=== PATIENT | female | born 1930 | race Caucasian/White ===

== ENCOUNTER → 2017-03-16 | Outpatient (CLI) | payer MEDICARE, BC ==
[~2017-03-16] MED LIST: DESYREL 50MG50 MG PO; NORCO 325 MG-51 TAB PO; PROLIA60 MG/ML SC
== END ==
LOC: MC.RAD 02-22 14:20
DX: Z12.31 Encounter for screening mammogram for malignant neoplasm of breast (principal)

== ENCOUNTER → 2018-07-14 | Outpatient (CLI) | payer MEDICARE, BC | LOC: MC.RAD 12:56 | DX: Z12.31 Encounter for screening mammogram for malignant neoplasm of breast (principal) | CPT/HCPCS: G0279 ==

== ENCOUNTER → 2019-10-09 | Outpatient (CLI) | payer MEDICARE, BC | LOC: MC.RAD 13:33 | DX: Z12.31 Encounter for screening mammogram for malignant neoplasm of breast (principal); D05.12 Intraductal carcinoma in situ of left breast; Z90.12 Acquired absence of left breast and nipple ==

== ENCOUNTER → 2020-10-16 | Outpatient (CLI) | payer MEDICARE, BC | LOC: MC.RAD 12:51 | DX: Z12.31 Encounter for screening mammogram for malignant neoplasm of breast (principal); C50.412 Malignant neoplasm of upper-outer quadrant of left female breast ==